=== PATIENT | male | born 1990 | race Caucasian/White ===

== ENCOUNTER 2021-11-25 13:16 | Outpatient (RCR) | payer BC ==
[~2021-11-25 13:16] MED LIST: CIPR500T78 PO; HYDR1TAB PO; HYDR1TAB8 OP
== END 2021-12-21 | disposition home or self-care (01) ==
LOC: ONC 13:16
PROVIDERS: ATTEND Internal Medicine Hematology & Oncology
DX: Z53.9 Procedure and treatment not carried out, unspecified reason (principal)